=== PATIENT | female | born 1945 | race Caucasian/White ===

== ENCOUNTER 2022-02-17 15:30 | Outpatient (RCR) | payer BC, SELFPAY | END 2022-05-01 09:07 | disposition home or self-care (01) | PROVIDERS: Visit Provider Psychiatry & Neurology Neurology | DX: I63.9 Cerebral infarction, unspecified (principal); R41.840 Attention and concentration deficit; Z51.89 Encounter for other specified aftercare | CPT/HCPCS: 97165; 97168; 97535 ==

== ENCOUNTER 2022-08-28 11:00 | Outpatient (RCR) | payer BC, SELFPAY | END 2022-11-18 15:55 | disposition home or self-care (01) | PROVIDERS: PCP Psychiatry & Neurology Neurology; Visit Provider Psychiatry & Neurology Neurology | DX: M54.2 Cervicalgia (principal); Z51.89 Encounter for other specified aftercare | CPT/HCPCS: 97110; 97112; 97116; 97140; 97163 ==

== ENCOUNTER 2023-01-20 14:30 | Outpatient (RCR) | payer BC, SELFPAY | END 2023-03-05 10:45 | disposition home or self-care (01) | PROVIDERS: PCP Psychiatry & Neurology Neurology; Visit Provider Family Medicine | DX: R27.8 Other lack of coordination (principal); Z51.89 Encounter for other specified aftercare | CPT/HCPCS: 97110; 97112; 97116; 97140; 97161 ==

== ENCOUNTER 2023-07-18 12:34 | Emergency (ER) | payer BC, SELFPAY ==
[2023-07-18 12:52] VITALS: BP 109/73; PULSE 78; RESP 18; TEMP 36.3; O2SAT 97; BMI 35.4
[2023-07-18 12:56] LABS: Bilirubin Urine Negative (Negative); Blood Urine 3+ (Negative); Color Urine Red (Yellow); Glucose Urine Negative (Negative); Ketones Urine Negative (Negative); Leukocyte Esterase Urine 3+ (Negative); Nitrite Urine Negative (Negative); Protein Urine 2+ (Negative); Urobilinogen Urine 0.2 (0.2-1.0); pH Urine 5.5 (5.0-8.5)
--- NOTE | 2023-07-18 13:02 | ED.FEMALEGU ---
HPI - Female Genitourinary General Time Seen by Provider: 13:02 Date Seen: 07/18/23 Chief complaint: Urogenital Problems, Female Stated complaint: poss uti Time Seen by Provider: 07/18/23 13:00 Source: patient and RN notes reviewed Mode of arrival: ambulatory Limitations: no limitations History of Present Illness HPI Narrative: This 78-year-old female is coming in with blood that she noted in her depends. She is status post hysterectomy. She is starting to feel some pressure and urinary symptoms. She is on Xarelto for underlying history of atrial fibrillation, has congestive heart failure. She notes a bit of a complex recent history. She had a respiratory illness the beginning of May, states she got treatment for it but continued to not feel well. She did go to [place] ED at 1 point during this, was found to have fluid buildup in her lungs. They started her on Lasix for 5 days. She eventually was back in with her licensed clinician and was found to have low iron. She did just receive 2 IV iron transfusions this last week. She has had no fevers, has no nausea or vomiting, no significant abdominal pain. MD elicited complaint: UTI Related Data Home Medications Medication Instructions Recorded Confirmed atorvastatin 20 mg tablet 20 mg PO QDAY 07/07/22 07/07/22 blood sugar diagnostic (Moveruch #10 ea 07/07/22 07/07/22 Verio test strips) bupropion HCl 300 mg 24 hr tablet, tab PO 07/07/22 07/07/22 extended release calcium carbonate 600 mg-vitamin tab PO 07/07/22 07/07/22 D3 10 mcg (400 unit) tablet carvedilol 12.5 mg tablet 12.5 mg PO BID 07/07/22 07/07/22 citalopram 20 mg tablet 20 mg PO QDAY 07/07/22 07/07/22 famotidine 40 mg tablet 40 mg PO QDAY 07/07/22 07/07/22 fluticasone furoate 200 applicator inhalation 07/07/22 07/07/22 mcg-vilanterol 25 mcg/dose inhalation powder (Breo Ellipta) immun glob G 10 gram/50 mL(20 ml subcut 07/07/22 07/07/22 %)-pro-IgA 0-50 mcg/mL subcutaneous soln (Hizentra) lancets 33 gauge ([employer] Delica #100 ea 07/07/22 07/07/22 Plus Lancet) levothyroxine 100 mcg tablet 100 mcg PO QDAY 07/07/22 07/07/22 magnesium oxide 500 mg tablet 500 mg PO QDAY 07/07/22 07/07/22 nitroglycerin 0.4 mg sublingual 0.4 mg sublingual ONCE PRN 07/07/22 07/07/22 tablet olopatadine 0.2 % eye drops ml ophthalmic (eye) 07/07/22 07/07/22 rivaroxaban 20 mg tablet (Xarelto) 20 mg PO QDAY 07/07/22 07/07/22 umeclidinium 62.5 mcg/actuation applicator inhalation 07/07/22 07/07/22 blister powder for inhalation (Incruse Ellipta) vit C 250 mg-vit E 90 mg-zinc 40 applicator PO 07/07/22 07/07/22 mg-copper 1 [id number] capsule (PreserVision AREDS-2) acetaminophen 500 mg capsule 1,000 mg PO Q6H PRN 07/10/22 07/10/22 albuterol sulfate 90 mcg/actuation 2 puff inhalation Q4-6H PRN 07/10/22 07/10/22 aerosol inhaler cholecalciferol (vitamin D3) 50 50 mcg PO QDAY 07/10/22 07/10/22 mcg (2,000 unit) capsule (Vitamin D3) cyanocobalamin (vitamin B-12) 500 500 mcg PO QDAY 07/10/22 07/10/22 mcg tablet (Vitamin B-12) furosemide 20 mg tablet 20 mg PO QDAY PRN weight gain 07/10/22 07/10/22 Previous Rx's Medication Instructions Recorded cephalexin 500 mg tablet 500 mg PO TID #21 tabs 07/18/23 Allergies Allergy/AdvReac Type Severity Reaction Status Date / Time gabapentin Allergy nausea, Verified 07/07/22 14:45 dizzy hydromorphone Allergy Rash Verified 07/07/22 14:45 ibuprofen Allergy head Verified 07/07/22 14:45 swells latex Allergy Rash Verified 07/07/22 14:45 lisinopril Allergy leg cramps Verified 07/07/22 14:45 niacin Allergy heart Verified 07/07/22 14:45 palpatations, flushed feeling oxycodone Allergy Hives Verified 07/07/22 14:45 Sulfa (Sulfonamide Allergy hives, rash Verified 07/07/22 14:45 Antibiotics) Review of Systems Status of ROS: Reports: 6 or more systems reviewed and unremarkable except as noted in History and below [facility] Medical History COPD (chronic obstructive pulmonary disease) ?J44.9 - Chronic obstructive pulmonary disease, unspecified (ICD-10) Congestive heart failure ?I50.9 - Heart failure, unspecified (ICD-10) Non-Hodgkin lymphoma (1994) ?C85.90 - Non-Hodgkin lymphoma, unspecified, unspecified site (ICD-10) Surgical History History of arthroscopy of left shoulder (06/10/05) ?Z98.890 - Other specified postprocedural states (ICD-10) Trigger finger, right middle finger (12/04/05) ?M65.331 - Trigger finger, right middle finger (ICD-10) History of arthroscopy of right shoulder (03/26/17) ?Z98.890 - Other specified postprocedural states (ICD-10) H/O stem cell transplant ?Z94.84 - Stem cells transplant status (ICD-10) History of partial hysterectomy ?Z90.711 - Acquired absence of uterus with remaining cervical stump (ICD-10) H/O gastric bypass ?Z98.84 - Bariatric surgery status (ICD-10) 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/03) ?Z96.652 - Presence of left artificial knee joint (ICD-10) History of cholecystectomy ?Z90.49 - Acquired absence of other specified parts of digestive tract (ICD-10) History of total right knee replacement (~2002) ?Z96.651 - Presence of right artificial knee joint (ICD-10) Social History Smoking Status: Never smoker Do you use any of these nicotine containing products: None Second hand tobacco smoke exposure: Yes How often do you have a drink containing alcohol: never AUDIT-C Alcohol total score: 0 Non-prescribed substance use: denies use service: No Exam Const: Vital Signs, click to edit/add: Vital Signs - 24 hr 07/18/23 12:52 07/18/23 13:20 07/18/23 13:55 Temperature 97.3 F L 97.3 F L Pulse Rate Pulse Rate [Right Pulse Oximeter] 78 75 94 Respiratory Rate 18 18 20 Blood Pressure Blood Pressure [Ri ght Upper Arm] 109/73 110/71 131/93 H Pulse Oximetry 97 96 92 Oxygen Delivery Me thod Room Air Room Air Room Air 07/18/23 14:46 Temperature Pulse Rate 82 Pulse Rate [Right Pulse Oximeter] Respiratory Rate 20 Blood Pressure 129/87 Blood Pressure [Ri ght Upper Arm] Pulse Oximetry 97 Oxygen Delivery Me thod Room Air Argenis is ambulatory into the ED of her own accord. She is alert, interactive, no apparent distress. Face atraumatic, sclera clear, able to speak in complete sentences. Lungs are actually clear, good air entry, no wheezing or crackles. CV sounds regular do not hear any murmur, she is not fast, normal S1-S2, no S3-S4. Abdomen is obese but soft, nontender, no definite masses noted. Documenting provider has reviewed patient's vital signs: yes Course Course ED Course: Patient is currently afebrile, no nausea or vomiting. We are waiting her urinalysis to be read by labs. Have reviewed with her that I will stop back and discuss plans once I have seen urinalysis. Certainly this could be UTI but this is a patient on anticoagulation. May need to consider other pathology of the urinary tract. As far as antibiotics, review of the chart just shows her to be allergic to sulfa. Reevaluation(s) Time of Reevaluation #1: 13:15 Reevaluation #1: Did review with patient that she had significant hematuria as well as white cells. I do think we should just obtain some basic abdominal imaging without contrast to ensure we are not missing any major urinary tract pathology. She agrees to proceed. Time of Reevaluation #2: 15:55 Reevaluation #2: Reviewed with patient her CT report. She does have a partial staghorn calculus in the left kidney but no evidence of any infectious change around it. She however does have infectious change around the bladder on the CT. We discussed the need for outpatient follow-up with Urology or back to the ER if worsening. Vital Signs Vital signs: Initial Vital Signs Temperature 97.3 F L 07/18/23 12:52 Temperature Source Temporal Artery Scan 07/18/23 12:52 Pulse Rate 78 07/18/23 12:52 Respiratory Rate 18 07/18/23 12:52 Blood Pressure 109/73 07/18/23 12:52 Blood Pressure Mean 85 07/18/23 12:52 Blood Pressure Position Sitting 07/18/23 12:52 Pulse Oximetry 97 07/18/23 12:52 Oxygen Delivery Method Room Air 07/18/23 12:52 Vital Signs Temperature 97.3 F L 07/18/23 12:52 Pulse Rate 78 07/18/23 12:52 Respiratory Rate 18 07/18/23 12:52 Blood Pressure 109/73 07/18/23 12:52 Pulse Oximetry 97 07/18/23 12:52 Oxygen Delivery Method Room Air 07/18/23 12:52 Temperature 97.3 F L 07/18/23 13:20 Pulse Rate 82 07/18/23 14:46 Respiratory Rate 20 07/18/23 14:46 Blood Pressure 129/87 07/18/23 14:46 Pulse Oximetry 97 07/18/23 14:46 Oxygen Delivery Method Room Air 07/18/23 14:46 MDM - Female Genitourinary Lab Data Attestation: I reviewed the patient's lab results. Labs: Lab Results 07/18/23 Range/Units 12:47 Urine Color Red A (Yellow) Urine Appearance Turbid A (Clear) Urine pH 5.5 (5.0-8.5) Ur Specific [place] 1.020 (1.000-1.030) Urine Protein 2+ A (Negative) Urine Glucose (UA) Negative (Negative) Urine Ketones Negative (Negative) Urine Blood 3+ A (Negative) Urine Nitrite Negative (Negative) Urine Bilirubin Negative (Negative) Urine Urobilinogen 0.2 (0.2-1.0) Ur Leukocyte Esterase 3+ A (Negative) Urine RBC >100 A (0-2) Urine WBC >100 A (0-5) Ur Squamous Epith Cells Moderate A (None-Few) Urine Bacteria Moderate A (None) Imaging Data CT scan - abdomen: Attestation: I have reviewed the pertinent imaging results. Radiologist's impression: Patient: MANJU MAC Facility:?[facility] Patient ID:?[id number] Site Patient ID:?[id number]. Site :?[id number] Study:?CT Abdomen/Pelvis W/O-07/18/2023 1:52:31 PM Ordering Physician:Raj Vasquez Final Report: INDICATION: Urinary tract infection. Pain. COMPARISON: None. TECHNIQUE: Noncontrast images. FINDINGS: Mitral valve calcification. Coronary artery calcification. Lung bases appear clear. Gastric bypass changes. No dilated large or small bowel. Large partial staghorn calculus left kidney with greatest length of 15 mm. 3 mm nonobstructing calculus at the lower pole. No hydronephrosis. No nephrolithiasis on the right. Cholecystectomy clips. Hazy circumferential moderate urinary bladder wall thickening. Absent uterus. No adnexal mass. IMPRESSION: 1. Partial staghorn calculus mid left kidney with smaller nonobstructing calculus lower pole. No infection changes appreciated in the left kidney otherwise. 2. Thickened urinary bladder wall with suggestion of some very vesicular hazy inflammatory attenuation. Correlate with cystitis. 3. Ken-en-Y gastric bypass changes. Please note that all CT scans at this facility use dose modulation, iterative reconstruction, and/or weight-based dosing when appropriate to reduce radiation dose to as low as reasonably achievable. Dictated by Chance Stokes MD @ 07/18/2023 3:37:46 PM (Electronic Signature) Critical Care Time Critical Care Time Critical Care Time: No Discharge Plan Discharge Clinical Impression: Acute UTI Patient Disposition: Home, Self-Care Condition: Stable Instructions: Urinary Tract Infection in Older Adults (ED) Additional Instructions: Need to start oral antibiotic today and take as prescribed. You do need to follow up outpatient with your primary care provider and get referred to Urology. In the meantime, if you develop abdominal pain, it is associated with fevers or chills, your urinary symptoms are not improving with the antibiotics, do recommend re-evaluation. Activity Level: Activity as Tolerated Prescriptions: New cephalexin 500 mg tablet 500 mg PO TID Qty: 21 0RF No Action atorvastatin 20 mg tablet 20 mg PO QDAY bupropion HCl 300 mg tablet extended release 24 hr PO carvedilol 12.5 mg tablet 12.5 mg PO BID Patient Comments: TAKE 1 TABLET BY MOUTH 2 TIMES DAILY WITH MEALS. Xarelto 20 mg tablet 20 mg PO QDAY famotidine 40 mg tablet 40 mg PO QDAY levothyroxine 100 mcg tablet 100 mcg PO QDAY nitroglycerin 0.4 mg tablet, sublingual 0.4 mg sublingual ONCE PRN citalopram 20 mg tablet 20 mg PO QDAY calcium carbonate-vitamin D3 600 mg-10 mcg (400 unit) tablet PO PreserVision AREDS-2 250-90-40-1 mg capsule PO Hizentra 10 gram/50 mL (20 %) solution subcut (DME) OneTouch Verio test strips Strip See Rx Instructions .ROUTE .MEDSUPPLY Qty: 10 Patient Comments: TEST 1 TIME DAILY Rx Instructions: As directed olopatadine 0.2 % drops ophthalmic (eye) Patient Comments: PLACE 1 DROP INTO BOTH EYES ONCE DAILY (DME) lancets [OneTouch Delica Plus Lancet] 33 gauge misc See Rx Instructions .ROUTE .MEDSUPPLY Qty: 100 Patient Comments: TEST 1 TIMES PER DAY. ONE TOUCH DELICA PLUS 33G. COVERED BY INS Rx Instructions: As directed magnesium oxide 500 mg tablet 500 mg PO QDAY fluticasone furoate-vilanterol [Breo Ellipta] 200-25 mcg/dose blister with device inhalation Incruse Ellipta 62.5 mcg/actuation blister with device inhalation acetaminophen 500 mg capsule 1,000 mg PO Q6H PRN albuterol sulfate 90 mcg/actuation HFA aerosol inhaler 2 puff inhalation Q4-6H PRN cholecalciferol (vitamin D3) [Vitamin D3] 50 mcg (2,000 unit) capsule 50 mcg PO QDAY cyanocobalamin (vitamin B-12) [Vitamin B-12] 500 mcg tablet 500 mcg PO QDAY furosemide 20 mg tablet 20 mg PO QDAY PRN (Reason: weight gain) Patient Comments: PRN for weight gain of 3lbs in 1-5 days in one week Follow Up/Referrals: Jonh Kruse MD [Primary Care Provider] - Stand Alone Forms: [facility] Info Instructions
[2023-07-18 13:13] LABS: Appearance Urine Turbid (Clear); Bacteria Urine Moderate; RBC Urine >100 (0-2); Squamous Epithelial Cell Urine Moderate (None-Few); WBC Urine >100 (0-5)
[2023-07-18 13:20] VITALS: BP 110/71; PULSE 75; RESP 18; TEMP 36.3; O2SAT 96
--- NOTE | 2023-07-18 13:27 | CRLHL7_ITS ---
For Patients: As a result of the Cures Act, medical imaging exams and procedure reports are released immediately into your electronic medical record. You may view this report before your referring provider. If you have questions, please contact your health care provider. INDICATION: Urinary tract infection. Pain. COMPARISON: None. TECHNIQUE: Noncontrast images. FINDINGS: Mitral valve calcification. Coronary artery calcification. Lung bases appear clear. Gastric bypass changes. No dilated large or small bowel. Large partial staghorn calculus left kidney with greatest length of 15 mm. 3 mm nonobstructing calculus at the lower pole. No hydronephrosis. No nephrolithiasis on the right. Cholecystectomy clips. Hazy circumferential moderate urinary bladder wall thickening. Absent uterus. No adnexal mass. IMPRESSION: 1. Partial staghorn calculus mid left kidney with smaller nonobstructing calculus lower pole. No infection changes appreciated in the left kidney otherwise. 2. Thickened urinary bladder wall with suggestion of some very vesicular hazy inflammatory attenuation. Correlate with cystitis. 3. Ken-en-Y gastric bypass changes. Please note that all CT scans at this facility use dose modulation, iterative reconstruction, and/or weight-based dosing when appropriate to reduce radiation dose to as low as reasonably achievable. Dictated by Chance Stokes MD @ 07/18/2023 3:37:46 PM (Electronically Signed)
[2023-07-18 13:55] VITALS: BP 131/93; PULSE 94; RESP 20; O2SAT 92
[2023-07-18 14:46] VITALS: BP 129/87; PULSE 82; RESP 20; O2SAT 97
[2023-07-18 16:24] VITALS: BP 129/87; PULSE 82; RESP 18; TEMP 36.2
--- NOTE | 2023-07-18 16:26 | PC.NURSE ---
went over discharge instruction with pt. answered all questions. pt has copy of paperwork
== END 2023-07-18 16:27 | disposition home or self-care (01) ==
PROVIDERS: Emergency Provider Family Medicine; PCP Psychiatry & Neurology Neurology
DX: N39.0 Urinary tract infection, site not specified (principal)
CPT/HCPCS: 74176; 81001; 87086; 87186; 99283; 99284